=== PATIENT | female | born 1965 | race Caucasian/White ===

== ENCOUNTER 2017-10-28 06:26 | Emergency (ER) | payer MEDICAID, OTHER ==
[~2017-10-28] VITALS: Ht 152.4 cm; Wt 123.0 kg
[2017-10-28] MEDS ORDERED: KETOROLAC 60MG/2ML VIAL IM STA (07:08)
[2017-10-28 08:20] VITALS: BP 102/52
== END 2017-10-28 08:20 | disposition home or self-care (01) ==
LOC: ER 06:26
DX: K02.9 Dental caries, unspecified (principal); K03.81 Cracked tooth
CPT/HCPCS: 81025; 96372; 99283; J1885; Z7610

== ENCOUNTER 2018-01-29 11:01 | Emergency (ER) | payer MEDICAID, OTHER ==
[~2018-01-29] VITALS: Ht 152.4 cm; Wt 118.0 kg
[2018-01-29] MEDS ORDERED: DEXAMETHASONE 2MG TABLET PO ONE (12:30)
[2018-01-29 13:05] VITALS: BP 168/90
== END 2018-01-29 15:00 | disposition home or self-care (01) ==
LOC: ER 14:21
DX: K04.7 Periapical abscess without sinus (principal)
CPT/HCPCS: 99283; J8540